=== PATIENT | female | born 1950 | race Caucasian/White ===

== ENCOUNTER → 2021-03-10 | Outpatient (CLI) | payer MEDICARE, OTHER ==
--- NOTE | 2021-03-10 12:43 | Diagnostic Imaging Report ---
PROCEDURE: CT left lower extremity without contrast. TECHNIQUE: Multiple contiguous axial images were obtained through the left lower extremity without the use of intravenous contrast. Sagittal and coronal reformations were then performed. Auto Exposure Controls were utilized during the CT exam to meet ALARA standards for radiation dose reduction. INDICATION: Left femur fracture. COMPARISON: Outside CT from 10/11/2020. Radiographs from 03/02/2021 FINDINGS: There is demineralization throughout the left knee. Posttraumatic changes are seen at the distal femur from old intra-articular fracture. There does appear to be an articular surface bone gap along the intercondylar notch which measures 7 mm transverse. There has been some bony bridging of this sagittal oriented fracture. There is an impacted fracture of the lateral femoral condyle metaphysis which appears mildly more impacted since the prior exam, and with no significant bony bridging seen in this location. There are severe degenerative changes in the lateral compartment and mild degenerative changes in the medial compartment. There are mild degenerative changes in the patellofemoral compartment. There is increased bone mineral density in the distal femoral diametaphysis. There is a moderate left knee joint effusion with synovitis. The effusion appears decreased since October 2020. There is a small Jurado's cyst. There is generalized muscular atrophy. The menisci and ligaments are not well evaluated by CT. IMPRESSION: 1. Intra-articular distal left femur fracture demonstrates some bony bridging at the intercondylar notch fracture, with residual articular surface bone gap. There appears to be increased impaction without significant bony bridging across the transverse metaphyseal fracture of the lateral femoral condyle. 2. Improved left knee joint effusion, with synovitis. 3. Increased bone marrow density of the distal femur, likely blood products. 4. 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 Dictated by: Dictated on workstation # [id number]
== END ==
LOC: RAD 10:55
PROVIDERS: ATTEND Orthopaedic Surgery
DX: S72.422A Displaced fracture of lateral condyle of left femur, initial encounter for closed fracture (principal); S83.92XA Sprain of unspecified site of left knee, initial encounter; M85.9 Disorder of bone density and structure, unspecified; M17.12 Unilateral primary osteoarthritis, left knee
CPT/HCPCS: 73700; 76377

== ENCOUNTER → 2021-03-10 | Outpatient (CLI) | payer MEDICARE, OTHER | LOC: ORTHO 10:10 | PROVIDERS: ATTEND Orthopaedic Surgery | DX: S72.422A Displaced fracture of lateral condyle of left femur, initial encounter for closed fracture (principal); X58.XXXA Exposure to other specified factors, initial encounter | CPT/HCPCS: 99203 ==